=== PATIENT | female | born 1995 | race Caucasian/White ===

== ENCOUNTER 2022-06-26 12:49 | Outpatient (CLI) | payer BC | END 2022-06-26 12:50 | disposition home or self-care (01) | LOC: DTY/OP 12:49 | PROVIDERS: ATTEND Surgery | DX: E66.01 Morbid (severe) obesity due to excess calories (principal) | CPT/HCPCS: 97802 ==

== ENCOUNTER 2022-08-19 07:53 | Inpatient (IN) | payer BC ==
[2022-08-12 14:19] VITALS: BMI 57.2
[2022-08-19] MEDS ORDERED: Bupivacaine/Epinephrine 0.25% 30 ML VIAL ONE (08:20)
[2022-08-19] MEDS ORDERED: Heparin 5,000 UNITS/ML VIAL ONE (08:43)
[2022-08-19] MEDS ORDERED: fentaNYL 50 mcg/mL 1 mL Vial ONE ×2 (09:54→11:41)
[2022-08-19] MEDS ORDERED: Ketamine 50 MG/ML (10ML VIAL) ONE (09:54)
[2022-08-19] MEDS ORDERED: fentaNYL PF 100 MCG/2 ML SYRINGE ONE (09:54)
[2022-08-19] MEDS ORDERED: SUGAMMADEX SODIUM 200 MG/2 ML VIAL ONE (09:55)
[2022-08-19] MEDS ORDERED: Propofol 500 MG/50 ML VIAL ONE (09:55)
[2022-08-19] MEDS ORDERED: CEFAZOLIN 2 GM VIAL ONE (10:01)
[2022-08-19] MEDS ORDERED: Sodium Chloride 0.9% 100 ML ONE (10:01)
[2022-08-19] MEDS ORDERED: Esmolol 100 MG/10 ML VIAL ONE (10:14)
[2022-08-19] MEDS ORDERED: PROPOFOL 200 MG/20 ML VIAL ONE (10:14)
[2022-08-19] MEDS ORDERED: GLYCOPYRROLATE/PF 0.2 MG/ML VIAL ONE (10:14)
[2022-08-19] MEDS ORDERED: Ketorolac Tromethamine 30 MG/ML VIAL ONE (10:14)
[2022-08-19] MEDS ORDERED: Rocuronium Bromide 10 MG/ML (10ML VIAL) ONE (10:14)
[2022-08-19] MEDS ORDERED: NEOSTIGMINE 3 MG/3 ML SYR 3 MG/3 ML SYRINGE ONE (10:14)
[2022-08-19] MEDS ORDERED: Albuterol HFA (OR) 200 PUFF INH ONE (10:14)
[2022-08-19] MEDS ORDERED: Dexamethasone 20 MG/5 ML VIAL ONE (10:14)
[2022-08-19] MEDS ORDERED: Lidocaine 1% PF 5 ML VIAL ONE (10:14)
[2022-08-19] MEDS ORDERED: Ondansetron PF 4 MG/2 ML Vial ONE ×2 (10:14→12:05)
[2022-08-19] MEDS ORDERED: Ondansetron PF 4 MG/2 ML Vial IVP PRN ×2 (10:48→11:21)
[2022-08-19] MEDS ORDERED: FENTANYL 500 MCG/10 ML VIAL 2,000 MCG in Sodium Chloride 0.9% 60 ML IV PRN (10:48)
[2022-08-19] MEDS ORDERED: diphenhydrAMINE 50 MG/ML VIAL IM PRN (10:48)
[2022-08-19] MEDS ORDERED: Promethazine HCl 25 MG/ML VIAL IM PRN ×3 (10:48→11:21)
[2022-08-19] MEDS ORDERED: Ondansetron HCl/PF 4 MG/2 ML Vial IVP PRN (10:48)
[2022-08-19] MEDS ORDERED: Naloxone HCl 0.4 mg/ml Vial IV PRN (10:48)
[2022-08-19] MEDS ORDERED: diphenhydrAMINE 50 MG/ML VIAL IVP PRN ×2 (10:48→11:21)
[2022-08-19] MEDS ORDERED: diphenhydrAMINE 25 MG CAP PO PRN (10:48)
[2022-08-19] MEDS ORDERED: Communication Order-Pharmacy FS SCH (11:00)
[2022-08-19] MEDS ORDERED: Hydrocodone-Acetamin 15 ML UDCUP PO PRN (11:21)
[2022-08-19] MEDS ORDERED: Glucagon 1 MG/ML KIT IM PRN (11:21)
[2022-08-19] MEDS ORDERED: Ipratropium/Albuterol 3 ML NEB NEB PRN (11:21)
[2022-08-19] MEDS ORDERED: busPIRone HCl 5 MG TAB PO PRN (11:21)
[2022-08-19] MEDS ORDERED: hydrALAZINE 20 MG/ML VIAL SLOW IVP PRN (11:21)
[2022-08-19] MEDS ORDERED: Dextrose 5% in Water 1,000 ML IV PRN (11:21)
[2022-08-19] MEDS ORDERED: Dextrose 50% Abboject 50 ML SYRINGE SLOW IVP PRN (11:21)
[2022-08-19] MEDS: D5 1/2 NS w/20 mEq KCL 1,000 ML IV SCH ×2 (12:00→20:01)
[2022-08-19] MEDS ORDERED: Promethazine HCl 25 MG/ML VIAL ONE (12:22)
[2022-08-19] MEDS ORDERED: Metoclopramide HCl 10 MG/2 ML VIAL ONE (12:50)
[2022-08-19] MEDS ORDERED: D5 1/2 NS w/20 mEq KCL 1,000 ML ONE (13:00)
[2022-08-19] MEDS: Simethicone Chewable 80 MG TAB PO SCH (20:00)
[2022-08-20] MEDS: D5 1/2 NS w/20 mEq KCL 1,000 ML IV SCH ×2 (03:17→06:13)
[2022-08-20] MEDS ORDERED: Hydrocodone-Acetamin 15 ML UDCUP PO PRN (06:08)
[2022-08-20 06:12] LABS: #Monocytes 0.9 thou/uL (0.11-0.59); #Neutrophils 8.3 thou/uL (1.40-6.50); %Basophils 0.2 % (0.0-1.0); %Eosinophils 0.3 % (0.0-10.0); %Lymphocytes 20.8 % (21.0-51.0); %Monocytes 7.7 % (0.0-10.0); %Neutrophils 70.7 % (42.0-75.0); Mean Corpuscular HGB CONC 30.6 g/dL (32.0-36.0); Mean Corpuscular Hemoglobin 24.3 pg (27.0-31.0); Mean Corpuscular Volume 79.6 fl (78.0-98.0); Mean Platelet Volume 10.2 fL (7.4-10.4); Platelet Count 362 10x3/uL (130-400); RBC Distribution Width 15.8 % (11.5-14.5); Red Blood Cell (RBC) Count 4.52 mill/uL (4.20-5.40); White Blood Cell (WBC) Count 11.7 10x3/uL (4.8-10.8)
[2022-08-20 06:34] LABS: Anion Gap 12 mmol/L (10-20); BUN (Urea Nitrogen) 7 mg/dL (7.0-18.7); Calc. Creatinine Clearance 287 mL/min (70-130); Calcium 9.3 mg/dL (7.8-10.44); Carbon Dioxide 22 mmol/L (22-29); Chloride 107 mmol/L (98-107); Estimated GFR 117; Glucose 110 mg/dL (70-105); Potassium 4.4 mmol/L (3.5-5.1); Sodium 137 mmol/L (136-145)
[2022-08-20] MEDS: Simethicone Chewable 80 MG TAB PO SCH (08:12)
[2022-08-20 08:53] VITALS: BP 128/77; TEMP 98.1
[2022-08-20] MEDS ORDERED: Norethindrone Ac-Eth Estradiol [Loestrin 21 1-20 Tablet] PO SCH (09:00)
[2022-08-20] MEDS ORDERED: Pantoprazole 40 MG VIAL IVP SCH (09:00)
== END 2022-08-20 10:20 | disposition home or self-care (01) | DRG 621 ==
LOC: SDC 07:53 → SURG B 11:21
PROVIDERS: ADMIT Surgery; ATTEND Surgery
PROC: 0DB60Z3 Excision of Stomach, Open Approach, Vertical (ICD-10-PCS; principal; 2022-08-19)
PROC: 8E0W0CZ Robotic Assisted Procedure of Trunk Region, Open Approach (ICD-10-PCS; 2022-08-19)
DX: E66.01 Morbid (severe) obesity due to excess calories (principal); Z68.43 Body mass index [BMI] 50.0-59.9, adult
CPT/HCPCS: 36415; 80048; 85025; 88307; C9113; J1100; J1644; J1650; J1885; J2405; J2550; J2704; J2765; J3010; J3480; J3490